=== PATIENT | male | born 1985 | race Caucasian/White ===

== ENCOUNTER 2022-03-04 23:55 | Emergency (ER) | payer OTHER ==
[~2022-03-04] VITALS: Ht 180.3 cm; Wt 74.8 kg
== END 2022-03-05 01:29 | disposition left against medical advice (07) ==
LOC: ED 23:55
DX: S01.312A Laceration without foreign body of left ear, initial encounter (principal); W22.8XXA Striking against or struck by other objects, initial encounter; Y93.89 Activity, other specified; Y92.89 Other specified places as the place of occurrence of the external cause; Y99.8 Other external cause status

== ENCOUNTER → 2022-04-01 | Outpatient (CLI) | payer OTHER | END | disposition home or self-care (01) | LOC: RAD 10:25 | PROVIDERS: ATTEND Registered Nurse | DX: S92.535A Nondisplaced fracture of distal phalanx of left lesser toe(s), initial encounter for closed fracture (principal); M79.89 Other specified soft tissue disorders; W19.XXXA Unspecified fall, initial encounter; Y93.89 Activity, other specified; Y92.89 Other specified places as the place of occurrence of the external cause; Y99.8 Other external cause status ==